=== PATIENT | female | born 2000 | race Two or more races ===

== ENCOUNTER 2021-03-14 10:05 | Observation (INO) | payer SELFPAY ==
[2021-03-14] MEDS ORDERED: IV RINGERS,LACTATED 1000ML 1,000 ML IV PRN (10:15)
[2021-03-14 10:45] LABS: BILIRUBIN,URINE NEGATIVE (NEG); CLARITY,URINE CLEAR; COLOR,URINE YELLOW; NITRITE,URINE NEGATIVE (NEG); PH,URINE 6.5 (<5.0-8.0); PROTEIN,URINE NEGATIVE (NEG-TRACE); UROBILINOGEN,URINE 0.2 mg/dL (0.2 mg/dL)
[2021-03-14 10:53] LABS: BACTERIA,URINE FEW /HPF (0-FEW)
== END 2021-03-14 12:16 | disposition home or self-care (01) ==
LOC: 3 SO LND 10:05
PROVIDERS: ADMIT Obstetrics & Gynecology; ATTEND Obstetrics & Gynecology
DX: O99.891 Other specified diseases and conditions complicating pregnancy (principal); M54.50 Low back pain, unspecified; Z3A.25 25 weeks gestation of pregnancy
CPT/HCPCS: 59025; 81001; G0378; G0379

== ENCOUNTER 2021-03-21 18:11 | Inpatient (IN) | payer SELFPAY ==
[~2021-03-21] VITALS: Ht 149.9 cm; Wt 92.5 kg
[2021-03-21] MEDS ORDERED: OXYTOCIN 30 UNIT/500 ML PREMIX 500 ML IV PRN ×3 (18:45→23:00)
[2021-03-21] MEDS ORDERED: 0.9 % SODIUM CHLORIDE 10 ML DISP.SYRIN. IV PRN ×2 (18:45→23:00)
[2021-03-21] MEDS ORDERED: LIDOCAINE 1% PF 30 ML VIAL. INJ PRN (18:45)
[2021-03-21] MEDS ORDERED: BUTORPHANOL 2 MG/ML VIAL. IVP PRN ×2 (18:45)
[2021-03-21] MEDS ORDERED: TERBUTALINE 1 MG/ML VIAL. SQ PRN (18:45)
[2021-03-21] MEDS ORDERED: ACETAMINOPHEN 325 MG TABLET. PO PRN ×2 (18:45→23:00)
[2021-03-21] MEDS ORDERED: IV RINGERS,LACTATED 1000ML 1,000 ML IV SCH (18:45)
[2021-03-21 18:58] LABS: AMNIO PT POSITIVE
[2021-03-21 19:17] LABS: BASO # 0.1 x10^3/uL (0.0-0.2); BASO % 0 % (0-3); EOS # 0.1 x10^3/uL (0.0-0.7); EOS % 1 % (0-3); HEMATOCRIT 35.7 % (36.0-47.0); HEMOGLOBIN 12.2 g/dL (12.0-15.5); LYMPH # 2.1 x10^3/uL (1.0-4.8); LYMPH % 17 % (24-48); MEAN CORPUSCULAR HEMOGLOBIN 28 pg (25-35); MEAN CORPUSCULAR HGB CONC 34 g/dL (31-37); MEAN CORPUSCULAR VOLUME 83 fL (79-100); MONO # 0.7 x10^3/uL (0.0-1.1); MONO % 5 % (0-9); NEUT # 9.6 x10^3/uL (1.8-7.7); NEUT % 77 % (31-73); PLATELET COUNT 226 x10^3/uL (140-400); RED CELL DISTRIBUTION WIDTH 13.3 % (11.5-14.5); WHITE BLOOD COUNT 12.5 x10^3/uL (4.0-11.0)
[2021-03-21 19:30] VITALS: BP 122/77
--- NOTE | 2021-03-21 21:24 | PDOC1 ---
MIXER ATTENDANT H&P Date of Admission: Date of Admission: Mar 21, 2021 at 18:11 History of Present Illness: EDC: 04/06/21 LMP: 06/30/20 20y @ 37.5 by L=22 who presented to L&D with ctxs and LOF. The pt was confirmed ruptured by Aminosure. On presentation the pt was found to be dilated to 5 cm. PMH: Denies PSH: Denies Meds: PNV, Fe All: NKDA OBHx: TSVD x 1 SH: no tob, no EtOH FH: noncontributory Medications: Meds: Current Medications Medications (Trade) Dose Ordered Sig/Michelle Route PRN Reason Start Time Stop Time Status Last Admin Dose Admin Butorphanol Tartrate (Stadol) 2 mg PRN Q1HR PRN IVP Severe labor pain 03/21/21 18:45 03/21/21 20:13 Allergies: Coded Allergies: No Known Drug Allergies (Unverified , 03/14/21) Physical Exam: Vital Signs: Vital Signs Date Time Temp Pulse Resp B/P (MAP) Pulse Ox O2 Delivery O2 Flow Rate FiO2 03/21/21 20:13 18 Room Air 03/21/21 19:30 98.9 70 122/77 (92) 98.9 PE: GENERAL: No apparent distress. Alert and oriented. HEENT: Head normocephalic, atraumatic. NECK: Supple LUNGS: Clear to auscultation. HEART: RRR, S1, S2 present, pulses intact ABDOMEN: Soft, positive bowel sounds. EXTREMITIES: No cyanosis or edema. NEUROLOGIC: Normal speech, normal tone PSYCHIATRIC: Normal affect, normal mood. SKIN: No ulceration. FHT: 120s +acels/no decels/mLTV Cuthbert: 4-5 min SVE: 7/C/-2 Labs: Laboratory Tests Test 03/21/21 17:00 03/21/21 18:36 03/21/21 18:50 SARS-CoV-2 Antigen (Rapid) Negative (NEGATIVE) Amniotic Fluid Swab Test Positive White Blood Count 12.5 x10^3/uL (4.0-11.0) H Red Blood Count 4.30 x10^6/uL (3.50-5.40) Hemoglobin 12.2 g/dL (12.0-15.5) Hematocrit 35.7 % (36.0-47.0) L Mean Corpuscular Volume 83 fL (79-100) Mean Corpuscular Hemoglobin 28 pg (25-35) Mean Corpuscular Hemoglobin Concent 34 g/dL (31-37) Red Cell Distribution Width 13.3 % (11.5-14.5) Platelet Count 226 x10^3/uL (140-400) Neutrophils (%) (Auto) 77 % (31-73) H Lymphocytes (%) (Auto) 17 % (24-48) L Monocytes (%) (Auto) 5 % (0-9) Eosinophils (%) (Auto) 1 % (0-3) Basophils (%) (Auto) 0 % (0-3) Neutrophils # (Auto) 9.6 x10^3/uL (1.8-7.7) H Lymphocytes # (Auto) 2.1 x10^3/uL (1.0-4.8) Monocytes # (Auto) 0.7 x10^3/uL (0.0-1.1) Eosinophils # (Auto) 0.1 x10^3/uL (0.0-0.7) Basophils # (Auto) 0.1 x10^3/uL (0.0-0.2) Treponema pallidum Antibody Nonreactive (Nonreactive) Laboratory Tests 03/21/21 18:50 Laboratory Tests 03/21/21 18:50 Assessment & Plan: A/P 20y @ 37.5 by L=22 1.) SROM/Active labor 2.) Reji NI 3.) TDAP given 01/17/21 4.) Flu vaccine given 02/04/21 5.) Fetus cat I FHT 6.) GBS pending obtained 03/21/21, no risk factors LC MCHUGH MD Mar 21, 2021 21:24
[2021-03-21] MEDS ORDERED: OXYTOCIN PREMIX 30 UNIT/500 ML NS BAG. IV ONE (22:00)
--- NOTE | 2021-03-21 22:53 | PDOC4 ---
VAGINAL DELIVERY DATE DATE: 03/21/21 TIME: 22:53 TIME Patient delivered a viable male over intact perineum at 2244. Wt 7 lb 5.3 oz. Apgars 12/20. Placenta delivered spontaneously, intact with 3VC. 1st degree laceration well approximated and hemostatic, so not repaired noted. Good hemostasis noted. 20 U of Pit given with IVF. EBL 100 cc. WEIGHT Weight [ ] LC MCHUGH MD Mar 21, 2021 22:53
[2021-03-21] MEDS ORDERED: BENZOCAINE 20% TOPICAL AEROSOL SPRAY 57GM CAN. TP PRN (23:00)
[2021-03-21] MEDS ORDERED: SIMETHICONE 80 MG TAB.CHEW PO PRN (23:00)
[2021-03-21] MEDS ORDERED: PHENYLEPH/MINERAL OIL/PETROLAT RECTAL OINTMENT TUBE. RC PRN (23:00)
[2021-03-21] MEDS ORDERED: oxyCODONE/APAP 5/325 1 TAB TABLET PO PRN (23:00)
[2021-03-21] MEDS ORDERED: TDaP (BOOSTRIX) per PROTOCOL. MC PRN (23:00)
[2021-03-21] MEDS ORDERED: diphenhydrAMINE HCL 25 MG CAPSULE PO PRN (23:00)
[2021-03-21] MEDS ORDERED: HYDROCORTISONE 1% TOPICAL OINTMENT 30GM TUBE. TP PRN (23:00)
[2021-03-21] MEDS ORDERED: MAGNESIUM HYDROXIDE 2,400 MG/30 ML ORAL.SUSP. PO PRN (23:00)
[2021-03-21] MEDS ORDERED: MMR per PROTOCOL. MC PRN (23:00)
[2021-03-21] MEDS ORDERED: MAG HYDROX/ALUMINUM HYD/SIMETH 30 ML ORAL.SUSP PO PRN (23:00)
[2021-03-21] MEDS ORDERED: ZOLPIDEM 5 MG TABLET. PO PRN (23:00)
[2021-03-21] MEDS: IBUPROFEN 400 MG TABLET. PO PRN (23:09)
[2021-03-22 05:50] VITALS: BP 111/64
[2021-03-22 06:50] LABS: HEMATOCRIT 31.4 % (36.0-47.0); HEMOGLOBIN 10.2 g/dL (12.0-15.5); RED BLOOD COUNT 3.67 x10^6/uL (3.50-5.40); RED CELL DISTRIBUTION WIDTH 13.4 % (11.5-14.5)
[2021-03-22 07:45] VITALS: BP 118/67
[2021-03-22] MEDS: FERROUS SULFATE 325 MG TABLET. PO SCH ×2 (08:00→17:31)
[2021-03-22] MEDS: PRENATAL MULTIVITAMIN TABLET. PO SCH (09:37)
[2021-03-22] MEDS: IBUPROFEN 400 MG TABLET. PO PRN ×2 (09:37→17:31)
[2021-03-22] MEDS: DOCUSATE SODIUM 100 MG CAPSULE. PO PRN ×2 (09:37→17:30)
[2021-03-22 13:30] VITALS: BP 121/68
[2021-03-22 17:36] VITALS: BP 113/60
--- NOTE | 2021-03-22 18:56 | PDOC ---
J[employer] SWING DEVELOPER PROGRESS NOTE Date of Service: DATE: 03/22/21 TIME: 18:50 Subjective: Doing well. Pain well managed. Tolerates activity, diet, and voiding without difficulty. Otherwise denies complaints. Objective: Objective: FF @ U, scant lochia. Afebrile, VSS. Abdomen soft, non-tender. No edema. Vital Signs: Vital Signs Date Time Temp Pulse Resp B/P (MAP) Pulse Ox O2 Delivery O2 Flow Rate FiO2 03/21/21 19:30 98.9 70 18 122/77 (92) Room Air 98.9 03/22/21 05:50 98 Vital Signs Date Time Temp Pulse Resp B/P (MAP) Pulse Ox O2 Delivery O2 Flow Rate FiO2 03/22/21 17:36 97.8 73 16 113/60 (77) 98 Room Air 97.8 Labs: Laboratory Tests Test 03/22/21 06:35 White Blood Count 15.0 x10^3/uL (4.0-11.0) H Red Blood Count 3.67 x10^6/uL (3.50-5.40) Hemoglobin 10.2 g/dL (12.0-15.5) L Hematocrit 31.4 % (36.0-47.0) L Mean Corpuscular Volume 86 fL (79-100) Mean Corpuscular Hemoglobin 28 pg (25-35) Mean Corpuscular Hemoglobin Concent 33 g/dL (31-37) Red Cell Distribution Width 13.4 % (11.5-14.5) Platelet Count 196 x10^3/uL (140-400) Laboratory Tests 03/22/21 06:35 Laboratory Tests 03/22/21 06:35 Physical Exam: GENERAL: No apparent distress. Alert and oriented. HEENT: Head normocephalic, atraumatic. NECK: Supple LUNGS: Clear to auscultation. HEART: RRR, S1, S2 present, pulses intact ABDOMEN: Soft, positive bowel sounds. EXTREMITIES: No cyanosis or edema. NEUROLOGIC: Normal speech, normal tone PSYCHIATRIC: Normal affect, normal mood. SKIN: No ulceration. Assessment & Plan: PPD # 1, routine PP care. Anticipate d/c home tomorrow. JESUS SALAS CNM Mar 22, 2021 18:56
[2021-03-22 20:30] VITALS: BP 107/58
[2021-03-23 00:30] VITALS: BP 120/68
[2021-03-23] MEDS: IBUPROFEN 400 MG TABLET. PO PRN ×2 (00:41→09:42)
[2021-03-23 06:00] VITALS: BP 108/72
[2021-03-23 08:30] VITALS: BP 108/60
[2021-03-23] MEDS: FERROUS SULFATE 325 MG TABLET. PO SCH (09:40)
[2021-03-23] MEDS: DOCUSATE SODIUM 100 MG CAPSULE. PO PRN (09:40)
[2021-03-23] MEDS: PRENATAL MULTIVITAMIN TABLET. PO SCH (09:40)
--- NOTE | 2021-03-23 12:40 | PDOC ---
SALES TEAM MANAGER PROGRESS NOTE Date of Service: DATE: 03/23/21 TIME: 12:22 Subjective: Doing well. Pain well managed with PO meds. Initial plans to breastfeed exclusively - supplemented overnight 2/2 nipple pain. Left nipple with trauma, cracking and bleeding. Reassurance provided, encouraged frequent pumping while supplementing with formula to establish adequate milk supply. Has soothies at bedside. Lanolin provided. Otherwise tolerates activity, diet, and voiding without difficulty. to stay tonight 2/2 unknown GBS. Objective: Objective: Abdomen soft, NTTP. FF @ U/2, scant lochia. No edema. Breasts filling. Left nipple trauma appreciated. Vital Signs: Vital Signs Date Time Temp Pulse Resp B/P (MAP) Pulse Ox O2 Delivery O2 Flow Rate FiO2 03/22/21 07:45 98.2 74 18 118/67 (84) 98 Room Air 98.2 Vital Signs Date Time Temp Pulse Resp B/P (MAP) Pulse Ox O2 Delivery O2 Flow Rate FiO2 03/23/21 08:30 98.5 65 16 108/60 (76) Room Air 98.5 03/22/21 17:36 98 Physical Exam: GENERAL: No apparent distress. Alert and oriented. HEENT: Head normocephalic, atraumatic. NECK: Supple LUNGS: Clear to auscultation. HEART: RRR, S1, S2 present, pulses intact ABDOMEN: Soft, positive bowel sounds. EXTREMITIES: No cyanosis or edema. NEUROLOGIC: Normal speech, normal tone PSYCHIATRIC: Normal affect, normal mood. SKIN: No ulceration. Assessment & Plan: Rx Triple Nipple Ointment. Medication instructions and precautions reviewed. Cont routine PP care. Anticipate d/c home tomorrow. JESUS SALAS CNM Mar 23, 2021 12:40
[2021-03-23 14:15] VITALS: BP 121/58
[2021-03-23] MEDS ORDERED: MUPIROCIN 2 % OINTMENT 22GM TUBE. TP SCH (17:00)
[2021-03-23] MEDS ORDERED: NYSTATIN 100,000 UNIT/GM TOPICAL OINTMENT 15GM TUBE. TP SCH (17:00)
[2021-03-23] MEDS ORDERED: TRIAMCINOLONE ACETONIDE 0.5% TOPICAL CREAM 15GM TUBE. TP SCH (17:00)
[2021-03-23 20:00] VITALS: BP 112/59
[2021-03-24 02:00] VITALS: BP 119/69
[2021-03-24] MEDS: IBUPROFEN 400 MG TABLET. PO PRN (07:46)
[2021-03-24] MEDS: PRENATAL MULTIVITAMIN TABLET. PO SCH (07:46)
[2021-03-24] MEDS: DOCUSATE SODIUM 100 MG CAPSULE. PO PRN (07:47)
[2021-03-24] MEDS: FERROUS SULFATE 325 MG TABLET. PO SCH (07:47)
[2021-03-24 08:00] VITALS: BP 111/64
[2021-03-24 15:04] VITALS: BP 116/68
--- NOTE | 2021-03-24 17:00 | NUR ---
dismissed amb to in car. Home care instructions given with copies given to pt. Stable on feet. Baby in car seat. Extra supplies given to pt
--- NOTE | 2021-03-25 21:04 | DS ---
DATE OF DISCHARGE: 03/24/2021 ADMISSION DIAGNOSES: 1. Intrauterine at 37 weeks and 5 days by LMP equal to a 22-week ultrasound. 2. Spontaneous rupture of membranes. 3. Varicella nonimmune. 4. Status post DTaP. 5. Status post flu vaccine. 6. GBS pending. DISCHARGE DIAGNOSES: 1. Intrauterine at 37 weeks and 5 days by LMP equal to a 22-week ultrasound. 2. Spontaneous rupture of membranes. 3. Varicella nonimmune. 4. Status post DTaP. 5. Status post flu vaccine. 6. GBS negative. PROCEDURE: Spontaneous vaginal delivery. BRIEF HOSPITAL COURSE: The patient is a 20-year-old 2, para 1-0-0-1, who presents to Labor and Delivery at 37 weeks and 5 days by LMP equal to 22-week ultrasound with leakage of fluid and contractions. The patient was confirmed to be ruptured by the AmniSure. On presentation, the patient was found to be 5 cm dilated. The patient ultimately delivered by vaginal delivery. See delivery note for full detail. By day #2, the patient was meeting all discharge criteria and was subsequently discharged home. Of note, the patient's hemoglobin on admission was 12.2 and after discharge was 10.2. DISCHARGE INSTRUCTIONS: The patient was told not to lift anything greater than 20 pounds, have pelvic rest for 6 weeks. CALL IF: The patient was to call if she had fevers, chills, nausea, vomiting, abdominal pain or any additional questions or concerns. FOLLOWUP APPOINTMENT: The patient was to follow up on 05/06/2021 at 2:40 p.m. for her visit. DISCHARGE MEDICATIONS: The patient was given a prescription for Motrin 800 mg, 30 pills, ferrous sulfate 325 mg 60 pills and Colace 100 mg [address]: Maksim TID: [id number]
== END 2021-03-24 17:00 | disposition home or self-care (01) | DRG 807 ==
LOC: OBSVTOIN 18:11 → 3 SO LND 18:11
PROVIDERS: ADMIT Obstetrics & Gynecology; ATTEND Obstetrics & Gynecology
PROC: 10E0XZZ Delivery of Products of Conception, External Approach (ICD-10-PCS; principal; 2021-03-23)
DX: O13.4 Gestational [pregnancy-induced] hypertension without significant proteinuria, complicating childbirth (principal); Z37.0 Single live birth; Z3A.37 37 weeks gestation of pregnancy; Z20.822 Contact with and (suspected) exposure to COVID-19; O70.0 First degree perineal laceration during delivery
CPT/HCPCS: 36415; 84112; 85025; 85027; 86592; 86850; 86900; 86901; 87426; J0595; J2590; U0003; U0005; G0378